=== PATIENT | female | born 1945 | race Caucasian/White ===

== ENCOUNTER 2018-11-12 13:20 | Outpatient (CLI) | payer MEDICARE ==
--- NOTE | 2018-11-12 15:40 | BD ---
Exam: DEXA Bone Density 11/12/18 HISTORY: 73-year-old postmenopausal female for screening. FINDINGS: Lumbar Spine: BMD (g/cm2) T-SCORE L1 0.877 -1.0 L2 1.054 0.2 L3 1.137 0.5 L4 1.168 1.0 L1-L4 1.063 0.1 Left Femoral Neck: 0.776 -0.7 Total proximal left Femur: 0.993 0.4 Right Femoral Neck: 0.919 0.6 Total proximal right Femur: 1.062 1.0 Impression: Normal bone mineral density. This patient has a ten year WHO fracture risk of a major osteoporotic fr acture of 13% and hip fracture of 3.8%. POS: [facility]
--- NOTE | 2018-11-12 15:40 | RAD ---
Exam: 2 views lumbar spine HISTORY: Pain. FINDINGS: 5 lumbar vertebra. Vertebral body height is maintained. No fracture. Moderate degenerative change at L4-L5 and L5-S1. Mild hypertrophic changes in the posterior elements at L3-L4, L4-L5 and L5-S1. IMPRESSION: Moderate degenerative disc disease at L4-L5 and L5-S1.
== END 2018-11-12 13:21 | disposition home or self-care (01) ==
LOC: BICMAMMO 13:20
PROVIDERS: ATTEND Internal Medicine Rheumatology
DX: M81.0 Age-related osteoporosis without current pathological fracture (principal); M25.50 Pain in unspecified joint; M51.36 Other intervertebral disc degeneration, lumbar region; M51.37 Other intervertebral disc degeneration, lumbosacral region
CPT/HCPCS: 72100; 77080